=== PATIENT | female | born 1990 | race Caucasian/White ===

== ENCOUNTER 2018-06-02 19:12 | Emergency (ER) | payer MEDICAID ==
[2018-06-02 19:20] VITALS: BP 134/78
[2018-06-02] MEDS ORDERED: BACITRACIN OINT TOP STA (20:21)
[2018-06-02] MEDS ORDERED: DOXYCYCLINE 100 MG TABLET PO STA (20:21)
[2018-06-02] MEDS ORDERED: ACETAMINOPHEN 500 MG TABLET PO STA (20:25)
[2018-06-02] MEDS ORDERED: NAPROXEN 250 MG TABLET PO STA (20:25)
--- NOTE | 2018-06-02 20:25 | ED Physician Documentation ---
History of Present Illness - Stated complaint Stated Complaint: BACK PX/OPEN WOUND - Chief complaint Chief Complaint: General - Additonal information Additional information: 28-year-old IV drug user presents the emergency department for evaluation of abscesses. The patient has an abscess on her right thigh which spontaneously drained and now there is an ulcer. No surrounding erythema. No other fevers. The patient has multiple ulcerated areas on her forearms. Currently, the patient has no fluctuant abscesses. The patient reports chronic pain from an accident several years ago and the patient is requesting a MRI to further investigate the chronic pain. The patient requesting that she wants lab work performed to check her for everything. The patient is very nonspecific regarding what test she wants. The patient's main concern is the abscesses and that is what brought her to the emergency department. Symptoms are actually i mproving since the abscesses have spontaneously drained. Symptoms are described as mild. No other associated symptoms. Review of Systems Constitutional: reports: Fatigue. denies: Fever, Chills Cardiac: denies: Chest pain / pressure Respiratory: denies: Cough, Wheezing GI: denies: Abdominal Pain : denies: Dysuria Skin: reports: Lesions Musculoskeletal: reports: Back pain (Chronic back pain) PD PAST MEDICAL HISTORY - Present Medications Home Medications: Ambulatory Orders Medication Instructions Recorded Confirmed Doxycycline Hyclate 100 mg PO BID #20 capsule 06/02/18 Naproxen 500 mg PO BID PRN #60 tablet 06/02/18 - Allergies Allergies/Adverse Reactions: Allergies Allergy/AdvReac Type Severity Reaction Status Date / Time No Known Drug Allergies Allergy Verified 06/02/18 19:20 PD ED PE NORMAL - General General: Alert and oriented X 3, No acute distress - HEENT HEENT: Atraumatic, PERRL, EOMI, Ears normal - Neck Neck: Supple, no meningeal sign - Cardiac Cardiac: RRR, Strong equal pulses - Respiratory Respiratory: No respiratory distress, Clear bilaterally - Extremities Extremities: No deformity - Neuro Neuro: Alert and oriented X 3, Normal speech - Psych Psych: Normal affect PD ED PE EXPANDED - Derm SKin visual: 1 - abscess (The patient has a large ulcerated lesion on her right upper lateral thigh, there is no palpable evidence of a abscess. There is no er ythematous changes. No crepitus. The patient has multiple other areas of ulcerations on her forearms. There is no area of drainable abscess presently. 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 I advised that she needs to follow-up with primary care for ongoing management of her chronic pain The patient Requested Lab work, the patient was very nonspecific and said she wanted to be tested for everything. I explained to her that this was unreasonable and presently there is no findings that would suggest sepsis and currently I do not think lab work be of much utility regarding the patient's acute presentation for ulcerations.The patient appears appropriate for outpatient management with oral antibiotics and wound care. I recommended that she should follow-up with primary care for ongoing management. I discussed warning signs for decompensation and recommended returning to the emergency department for any worsening or any concerns. Departure - Departure Disposition: 01 Home, Self Care Clinical Impression: Ulcer Condition: Good Instructions: ED Ulcer Skin Simple Follow-Up: [facility] [Provider Group] [facility] [Provider Group] [facility] [Provider Group] [facility] [Provider Group] [facility] [Provider Group] Prescriptions: Doxycycline Hyclate 100 mg PO BID #20 capsule Naproxen 500 mg PO BID PRN #60 tablet PRN Reason: Pain Comments: Please follow-up with one of the primary care clinics that have been listed for you for further workup of your chronic symptoms and further workup of your chronic conditions. Patient please return to the emergency department for worsening symptoms or any concerns
== END 2018-06-02 21:08 | disposition home or self-care (01) ==
LOC: ED 19:12
DX: L97.119 Non-pressure chronic ulcer of right thigh with unspecified severity (principal); L98.499 Non-pressure chronic ulcer of skin of other sites with unspecified severity; M54.9 Dorsalgia, unspecified; G89.21 Chronic pain due to trauma; Z72.89 Other problems related to lifestyle
CPT/HCPCS: 99283; A9270